=== PATIENT | female | born 1995 | race Two or more races ===

== ENCOUNTER 2023-06-25 14:02 | Emergency (ER) | payer SELFPAY ==
[~2023-06-25] VITALS: Ht 165.1 cm; Wt 64.9 kg
[2023-06-25 14:15] VITALS: BP 112/76; PULSE 92; RESP 16; TEMP 98.2; O2SAT 98
== END 2023-06-25 16:15 | disposition left against medical advice (07) ==
LOC: ER 14:02
DX: R10.2 Pelvic and perineal pain (principal); Z53.21 Procedure and treatment not carried out due to patient leaving prior to being seen by health care provider
CPT/HCPCS: 99281; J7030

== ENCOUNTER 2023-08-13 07:01 | Emergency (ER) | payer SELFPAY ==
[~2023-08-13] VITALS: Ht 167.6 cm; Wt 64.2 kg
[2023-08-13 08:13] LABS: Basophils # (auto) 0 10 ^3/uL (0-0.2); Basophils % (auto) 0.3 % (0.0-2.0); Eosinophils # (auto) 0.1 10 ^3/uL (0-0.8); Eosinophils % (auto) 0.8 % (0.0-7.0); Hemoglobin 13.9 g/dL (12.2-16.2); Lymphocytes # (auto) 1.4 10 ^3/uL (0.4-5.4); Lymphocytes % (auto) 18.1 % (10.0-50.0); Mean Corpuscular Hemoglobin 31.2 pg (28.0-32.0); Mean Corpuscular Hgb Conc. 33.8 g/dL (32.0-36.0); Mean Corpuscular Volume 92.4 fL (80.0-100.0); Monocytes # (auto) 0.5 10 ^3/uL (0-1.3); Monocytes % (auto) 6.8 % (0.0-12.0); Neutrophils # (auto) 5.8 10 ^3/uL (1.6-8.6); Red Blood Cells 4.44 10^6/uL (4.0-5.20); White Blood Cell 7.9 10^3/uL (4.4-10.8)
[2023-08-13 08:20] LABS: Alkaline Phosphatase 32 U/L (46-116); Anion Gap 7 (5-15); Calcium 9.9 mg/dL (8.5-10.1); Carbon Dioxide 25 mmol/L (20-30); Chloride 106 mmol/L (98-107); Glucose 74 mg/dL (74-106); Potassium 3.6 mmol/L (3.5-5.1); Sodium 138 mmol/L (136-145)
[2023-08-13 08:21] LABS: Albumin 4.4 g/dL (3.2-4.8); Aspartate Aminotransferase 14 U/L (13-40); Bilirubin, Total 0.7 mg/dL (0.2-1.0)
[2023-08-13 08:22] LABS: Alanine Aminotransferase < 9 U/L (7-40); BUN/Creatinine Ratio 8.6 (10.0-20.0); Blood Urea Nitrogen < 5 mg/dL (9-23)
[2023-08-13 08:31] LABS: Urine Bacteria None Seen /hpf (None Seen)
[2023-08-13 09:00] LABS: Urine Blood Negative /uL (Negative); Urine Clarity Clear (Clear); Urine Color Yellow (Yellow); Urine Mucus FEW (None Seen); Urine Protein, UAD Negative (Negative); Urine Specific Gravity 1.018 (1.001-1.035); Urine Urobilinogen Normal (Negative); Urine WBC 2 /hpf (0 - 5); Urine pH 5.5 (5.0-9.0)
[2023-08-13 11:05] VITALS: BP 107/68; PULSE 71; RESP 18; TEMP 98.4; O2SAT 97
== END 2023-08-13 11:06 | disposition home or self-care (01) ==
LOC: ER 07:01
DX: R10.2 Pelvic and perineal pain (principal); Z34.01 Encounter for supervision of normal first pregnancy, first trimester; Z3A.11 11 weeks gestation of pregnancy
CPT/HCPCS: 36415; 76801; 76817; 80053; 81001; 84702; 85025; 99284; J7030